=== PATIENT | male | born 1970 | race Caucasian/White ===

== ENCOUNTER 2017-10-13 10:12 | Inpatient (IN) | payer OTHER ==
[~2017-10-13] VITALS: Ht 182.9 cm; Wt 127.0 kg
[2017-10-13] VITALS (7 sets, daily range): BP systolic 113–208; BP diastolic 60–98; PULSE 80–122; RESP 16–18; TEMP 97.2–97.8; O2SAT 97–99
[~2017-10-13 10:12] MED LIST: AMBI5TAB PO; CLON.1 PO; VIST25CA PO; XANA0.5T PO; ZOLP10TA3 PO
[2017-10-13] MEDS ORDERED: MORPHINE SULFATE 8 MG/ML INJ ONE (10:16)
[2017-10-13] MEDS ORDERED: ceFAZolin 2 GM PREMIX 50 ML ONE (10:16)
[2017-10-13] MEDS ORDERED: DIPHTH/TETANUS/ACEL PERTUSSIS (BOOSTER) 0.5 ML VIAL/PFS IM ONE (10:16)
[2017-10-13] MEDS ORDERED: ONDANSETRON HCL 4 MG/2 ML VIAL ONE (10:17)
[2017-10-13] MEDS ORDERED: GENTAMICIN 80 MG PREMIX 100 ML ONE (10:22)
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
[2017-10-13 10:52] LABS: AUTOMATED NEUTROPHIL # 7.3 TH/MM3 (1.8-7.7); BASOPHIL % 0.3 % (0.0-2.0); EOSINOPHIL # 0.4 TH/MM3 (0-0.4); EOSINOPHIL % 3.2 % (0.0-4.0); HEMATOCRIT 40.7 % (39.0-51.0); HEMO FLAGS DIFF FINAL; I-STAT POTASSIUM 3.8 MMOL/L (3.5-4.9); LYMPH % 35.5 % (9.0-44.0); LYMPHOCYTE # 4.8 TH/MM3 (1.0-4.8); MEAN CELL VOLUME 83.6 FL (80.0-100.0); MEAN CORPUSCULAR HEMOGLOBIN 28.5 PG (27.0-34.0); MONO % 6.3 % (0.0-8.0); NEUT % 54.7 % (16.0-70.0); PLATELET COUNT 217 TH/MM3 (150-450); RED BLOOD COUNT 4.87 MIL/MM3 (4.50-5.90); RED CELL DISTRIBUTION WIDTH 13.6 % (11.6-17.2); WHITE BLOOD COUNT 13.4 TH/MM3 (4.0-11.0)
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
[2017-10-13] MEDS ORDERED: IOHEXOL 350 MG/ML 10 ML VIAL (for RAD DIAG) IVCONTRAST ONE (10:54)
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
[2017-10-13 11:02] LABS: APTT (PATIENT) 25.4 SEC (24.3-30.1); PROTHROMBIN TIME - PATIENT 10.7 SEC (9.8-11.6)
[2017-10-13] MEDS ORDERED: AMLO5TAB2 PO (11:02)
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
[2017-10-13] MEDS ORDERED: GABA100C4 PO (11:20)
[2017-10-13] MEDS ORDERED: ZOLP10TA3 PO (11:20)
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
[2017-10-13] MEDS: hydrALAZINE HCL 20 MG/ML VIAL IV PUSH ONE ×2 (11:41→11:45)
[2017-10-13] MEDS ORDERED: LORazepam 2 MG/ML VIAL IV PUSH ONE (11:45)
[2017-10-13] MEDS ORDERED: GLYCOPYRROLATE 1 MG/5 ML SYRINGE IV PUSH ONE (12:00)
[2017-10-13] MEDS ORDERED: PHENYLEPH/NS 1000 MCG/10 ML SYR IV ONE (12:00)
[2017-10-13] MEDS ORDERED: LACTATED RINGER'S 1000 ML INJ 5,000 ML IV ONE (12:00)
[2017-10-13] MEDS ORDERED: DEXAMETHASONE SOD PHOS 4 MG/ML VIAL IV ONE (12:00)
[2017-10-13] MEDS ORDERED: SODIUM CHLORIDE 0.9% 20 ML VIAL IV ONE (12:00)
[2017-10-13] MEDS ORDERED: LIDOCAINE HCL 1% PF 5 ML SYRINGE OTHER ONE (12:00)
[2017-10-13] MEDS ORDERED: ROCURONIUM INJ 50 MG/5 ML SYRINGE IV PUSH ONE (12:00)
[2017-10-13] MEDS ORDERED: MORPHINE SULFATE 4 MG/ML INJ IV ONE ×2 (12:00)
[2017-10-13] MEDS ORDERED: CHLORHEXIDINE GLUCONATE 2 % 1 PACK (2 CLOTHS) TOP PRN (12:00)
[2017-10-13] MEDS ORDERED: ONDANSETRON HCL 4 MG/2 ML VIAL IV PUSH ONE (12:00)
[2017-10-13] MEDS ORDERED: HYDROmorphone HCL PF 1 MG/ML VIAL IVP PRN (12:00)
[2017-10-13] MEDS ORDERED: MIDAZOLAM HCL 2 MG/2 ML VIAL IV ONE ×2 (12:00)
[2017-10-13] MEDS ORDERED: ACETAMINOPHEN 325 MG TAB PO PRN (12:00)
[2017-10-13] MEDS ORDERED: MISCELLANEOUS NURSING INFORMATION XX SCH (12:00)
[2017-10-13] MEDS ORDERED: NEOSTIGMINE 3 MG/3 ML SYR IV ONE (12:00)
[2017-10-13] MEDS ORDERED: SUCCINYLCHOLINE CHLORIDE 100 MG/5 ML SYRINGE IV PUSH ONE (12:00)
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
[2017-10-13] MEDS ORDERED: HYDROmorphone HCL PF 0.5 MG/0.5 ML SYRINGE IV PUSH PRN (12:30)
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
[2017-10-13] MEDS ORDERED: VANCOMYCIN HCL 1000 MG VIAL ONE (13:08)
[2017-10-13] MEDS ORDERED: GENTAMICIN SULFATE 80 MG/2 ML VIAL ONE (13:08)
[2017-10-13] MEDS: ACETAMINOPHEN 1000 MG/100 ML 100 ML IV SCH ×3 (13:22→22:55)
[2017-10-13] MEDS ORDERED: ACETAMINOPHEN 1000 MG/100 ML 0 ML IV ONE (13:36)
[2017-10-13] MEDS ORDERED: PROMETHAZINE HCL 25 MG TAB PO PRN (14:45)
[2017-10-13] MEDS ORDERED: MAGNESIUM HYDROXIDE SUSP 30 ML CUP PO PRN (14:45)
[2017-10-13] MEDS ORDERED: ZOLPIDEM TARTRATE 5 MG TAB PO PRN (14:45)
[2017-10-13] MEDS ORDERED: oxyCODONE/ACETAMINOPHEN 5 MG/325 MG TAB PO PRN ×2 (14:45)
[2017-10-13] MEDS ORDERED: SENNOSIDES 8.6 MG TAB PO PRN (14:45)
[2017-10-13] MEDS ORDERED: LACTULOSE SYRUP 20 GM/30 ML CUP PO PRN (14:45)
[2017-10-13] MEDS ORDERED: Post-op Orders (for Pharmacy) MISC XX ONE (14:45)
[2017-10-13] MEDS ORDERED: BISACODYL 10 MG SUPP RECTAL PRN (14:45)
[2017-10-13] MEDS ORDERED: ceFAZolin INJ 1,000 MG VIAL ONE ×2 (15:25→19:19)
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
[2017-10-13] MEDS ORDERED: ZOLPIDEM TARTRATE 10 MG TAB PO PRN (18:00)
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
[2017-10-13] MEDS ORDERED: GLUCAGON 1 MG/ML VIAL OTHER PRN (19:30)
[2017-10-13] MEDS ORDERED: DEXTROSE 50% IN WATER 50 ML VIAL(D50) IV PUSH PRN (19:30)
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
--- NOTE | 2017-10-13 20:14 | PD.OP ---
cc: Graeme Blackwood Jr., MD Operative Report Date of Surgery: Oct 13, 2017 Preoperative Diagnosis: 1-left distal radial shaft fracture 2- left segmental femur fracture Postoperative Diagnosis: Same Procedure: #1 left open reduction internal fixation, wrist #2 left femur intramedullary lucie fixation Anesthesia: Gen. Surgeon: Graeme Blackwood Cloth Grader Supervisor(s): Hospital staff Resident Surgeon: Sailaja Operation and Findings: Patient was seen and evaluated preoperatively and found to have a left distal radial shaft fracture as well as a left segmental femur shaft fracture. Informed consent was obtained after detailed discussion of risk and benefits including bleeding, infection, injury to arteries, nerves, and blood vessels, weakness and numbness of hand, and tendon rupture. Informed consent was obtained. Patient received IV antibiotics prior to incision. Timeout procedure was performed. Operative extremity were prepped with alcohol followed by Hibiclens and draped usual sterile fashion. Patient was placed supine on the fracture table with both left upper and left lower extremity prepped. A standard volar approach to the distal radius was utilized. A 3 inch incision was made over the FCR tendon. Tendon sheath was opened. The fracture site was now visualized. The fracture was reduced. Fracture fragments were manipulated to achieve excellent reduction. Fluoroscopy confirmed appropriate alignment of fracture. A Synthes 7-hole LCDC plate was selected. Plate was provisionally fixed to bone with K wires. Cortical screws were used to compress plate to bone. Fluoroscopy confirmed appropriate alignment of fracture with well-placed hardware. Multiple screws were now placed on either side of the fracture. Screws were predrilled and measured for appropriate length. Final fluoroscopy revealed excellent of fracture with well-placed hardware. The wound was thoroughly irrigated with sterile saline. Subcutaneous tissue was closed with 3-0 Vicryl and skin was closed with 3-0 nylon. Sterile dressings were applied with Xeroform, 4 x 4, soft roll, and a well padded volar splint. Implants used: 400mm x 10mm Synthes TFNA troch nail Procedure began with reduction of fracture. Small incisions were made at the level of the lesser trochanter and distal femur. Traction was applied. Both fractures were reduced with clamps. The leg was manipulated to achieve reduction. Excellent reduction was achieved. Fluoroscopy was used to confirm reduction. A three inch incision was made proximal to the trochanter. Subcutaneous tissue was dissected bluntly. Guidepin was placed at the tip of the trochanter and advanced into the femoral canal. Fluoroscopy confirmed appropriate guidepin placement. A opening reamer was placed over the guidepin. A long ball tipped guide pin was now placed down the femoral canal into the center of the distal femur. The nail length was now measured. Fluoroscopy confirmed appropriate guidepin placement. Flexible reamers were now passed over the guidepin to ream the intramedullary canal. The Synthes TFNA nail was attached to the insertion handle. Nail was now placed over the guidepin into the femoral canal. Fluoroscopy confirmed appropriate nail placement. A second incision was made over the lateral thigh. Cannulas were placed through the insertion handle down to the femur. Guidepin was now placed through the femoral nail into the center of the femoral head. Fluoroscopy confirmed appropriate guidepin placement. Screw length was measured. Cannulated drill was placed over the guidepin. Appropriate length lag screw was now placed. Traction was released. The set screw was now tightened. Next, using perfect coeur d'alene technique two distal interlocking screws were placed. Screw holes were predrilled and screw lengths were measured. Final fluoroscopy revealed well aligned fracture with well-placed hardware. Incision was closed with 3-0 Vicryl and kym. Sterile dressings were applied. Patient was awakened and transferred to recovery room. POSTP-OP PLAN OF ACTIVITY Antibiotics: Ancef Antiocoagulation: Lovenox Weight bearing status: NWB LUE LLE Dressing: Change daily POD 2 Dispo: expected discharge when cleared by trauma team Graeme Blackwood Jr., MD Oct 13, 2017 20:14
[2017-10-13] MEDS: INSULIN NovoLIN REGULAR SUPPLEMENTAL SCALE SQ SCH (21:00)
[2017-10-13] MEDS ORDERED: DO NOT ADM ANY ANTICOAGULANT DRUGS PRN (21:00)
[2017-10-13] MEDS ORDERED: DOCUSATE SODIUM 100 MG CAP PO SCH (21:00)
[2017-10-13] MEDS ORDERED: *MEPERIDINE 25 MG INJ VIAL PERIprocedural Use ONLY ONE (21:27)
[2017-10-13] MEDS ORDERED: *morphine SULFATE 8 MG/ML PERIprocedure ONLY ONE ×2 (21:27→21:52)
[2017-10-13] MEDS: LACTATED RINGER'S 1000 ML INJ 1,000 ML IV SCH ×2 (21:45→22:00)
[2017-10-13] MEDS: CHLORHEXIDINE GLUCONATE 2 % 1 PACK (2 CLOTHS) TOP SCH (22:25)
[2017-10-13] MEDS: GABAPENTIN 100 MG CAP PO SCH (22:25)
[2017-10-13] MEDS: DOCUSATE SODIUM 50 MG/SENNA 8.6 MG TAB PO SCH (22:25)
[2017-10-13] MEDS: SODIUM CHLORIDE 0.9% FLUSH 10 ML FLUSH IV FLUSH SCH (22:25)
[2017-10-14] VITALS (9 sets, daily range): BP systolic 104–139; BP diastolic 55–84; PULSE 95–112; RESP 18–20; TEMP 96.6–99; O2SAT 92–97
[2017-10-14] MEDS: MORPHINE SULFATE 8 MG/ML INJ IV PUSH PRN ×4 (00:49→10:26)
[2017-10-14] MEDS ORDERED: ENOXAPARIN SODIUM 30 MG/0.3 ML SYRINGE SQ SCH (04:00)
[2017-10-14] MEDS: ACETAMINOPHEN 1000 MG/100 ML 100 ML IV SCH (06:15)
[2017-10-14 06:53] LABS: AUTOMATED NEUTROPHIL # 11.4 TH/MM3 (1.8-7.7); HEMATOCRIT 28.6 % (39.0-51.0); HEMO FLAGS DIFF FINAL; LYMPH % 9.9 % (9.0-44.0); LYMPHOCYTE # 1.4 TH/MM3 (1.0-4.8); MEAN CELL VOLUME 84.3 FL (80.0-100.0); MEAN CORPUSCULAR HEMOGLOBIN 28.3 PG (27.0-34.0); MEAN CORPUSCULAR HGB CONC 33.5 % (32.0-36.0); MONO % 8.2 % (0.0-8.0); NEUT % 81.9 % (16.0-70.0); PLATELET COUNT 199 TH/MM3 (150-450); RED BLOOD COUNT 3.39 MIL/MM3 (4.50-5.90); RED CELL DISTRIBUTION WIDTH 13.4 % (11.6-17.2); WHITE BLOOD COUNT 13.9 TH/MM3 (4.0-11.0)
[2017-10-14 07:18] LABS: ALT (GPT) 91 U/L (12-78)
[2017-10-14 07:20] LABS: ALKALINE PHOSPHATASE 66 U/L (45-117); TOTAL BILIRUBIN ADULT 0.4 MG/DL (0.2-1.0)
[2017-10-14 07:44] LABS: ANION GAP 6 MEQ/L (5-15); AST (GOT) 261 U/L (15-37); BICARBONATE 26.2 MEQ/L (21.0-32.0); CHLORIDE 105 MEQ/L (98-107); GLOMERULAR FILTRATION RATE 54 ML/MIN (>89); POTASSIUM 4.6 MEQ/L (3.5-5.1); SODIUM (NA) 137 MEQ/L (136-145)
[2017-10-14] MEDS: DOCUSATE SODIUM 50 MG/SENNA 8.6 MG TAB PO SCH ×2 (07:50→21:36)
[2017-10-14] MEDS: GABAPENTIN 100 MG CAP PO SCH ×3 (07:50→17:20)
[2017-10-14] MEDS: amLODIPine BESYLATE 5 MG TAB PO SCH (07:50)
[2017-10-14] MEDS: SODIUM CHLORIDE 0.9% FLUSH 10 ML FLUSH IV FLUSH SCH ×2 (07:51→21:38)
[2017-10-14] MEDS: INSULIN NovoLIN REGULAR SUPPLEMENTAL SCALE SQ SCH (07:52)
[2017-10-14] MEDS: LACTATED RINGER'S 1000 ML INJ 1,000 ML IV SCH (08:00)
[2017-10-14 08:01] LABS: BLOOD UREA NITROGEN 20 MG/DL (7-18)
[2017-10-14] MEDS ORDERED: INFLUENZA VIRUS VACCINE (QUADRIVALENT) 0.5 ML SYR IM ONE (09:00)
[2017-10-14] MEDS ORDERED: HYDROmorphone HCL PF 1 MG/ML VIAL IV PUSH PRN (11:15)
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
--- NOTE | 2017-10-14 12:52 | PD.ORT.PN ---
Subjective Subjective Remarks doing well. pain issues. h/o opiate abuse Objective Vitals Vital Signs Date Time Temp Pulse Resp B/P (MAP) Pulse Ox O2 Delivery O2 Flow Rate FiO2 10/14/17 12:00 97.4 95 18 126/69 (88) 93 10/14/17 09:24 93 21 10/14/17 08:00 96.6 100 18 104/61 (75) 92 10/14/17 04:23 96 Nasal Cannula 2.00 10/14/17 04:14 96.7 112 18 139/55 (83) 96 10/14/17 00:27 98.5 106 20 120/70 (87) 95 10/13/17 22:43 97.2 116 18 113/60 (77) 99 10/13/17 22:02 123 14 101/59 (73) 98 Nasal Cannula 2 10/13/17 21:45 121 11 130/63 (85) 97 Nasal Cannula 2 10/13/17 21:30 98.2 129 15 132/51 (78) 97 Nasal Cannula 2 10/13/17 21:16 126 25 133/67 (89) 100 Nasal Cannula 2 10/13/17 21:14 98.2 124 15 155/70 (98) 100 Nasal Cannula 3 I/O 10/13/17 10/13/17 10/13/17 10/14/17 10/14/17 10/14/17 07:00 15:00 23:00 07:00 15:00 23:00 Intake Total 3900 ml 200 ml Output Total 1200 ml 450 ml 650 ml Balance -1200 ml 3450 ml -450 ml Intake IV Total 800 ml 200 ml Other 3100 ml Output Urine Total 1200 ml 150 ml 650 ml Estimated Blood Loss 300 ml Result Diagram: 10/14/1745 10/14/1745 Objective Remarks Alert awake and oriented -3. No acute distress. Pulmonary: Normal respiratory effort. Left upper extremity: Splint in place. Able to wiggle fingers. Grossly neuro intact. good cap refill. Left lower Extremity: Neurovascularly intact, +EHL/FHL, dressing clean, dry and intact. + PT/DP pulses. Supple compartments. Negative Homans sign. Assessment & Plan Assessment and Plan #1 left wrist open reduction internal fixation #2 left femoral shaft intramedullary lucie fixation POD # 1 Doing well, history of opiate abuse. Antibiotics: Ancef DVT prophylaxis, Lovenox, ASA 81mg at dc Weightbearing status: NWB DOROTHY QUEVEDO Dressing change: Change daily, by RN starting postop day 2 Dispo: Stable and okay to discharge from orthopedic standpoint. Follow-up: 2 weeks, Dr. Blackwood, [facility] Thank you for the consult and allowing us to take part in this patient's medical care. Graeme Blackwood Jr., MD Oct 14, 2017 12:52
[2017-10-14] MEDS: BACITRACIN TOP OINT 15 GM TUBE TOP SCH ×2 (13:07→21:36)
[2017-10-14] MEDS: POLYETHYLENE GLYCOL 17 GM PKG PO SCH (13:07)
[2017-10-14] MEDS: METHOCARBAMOL 500 MG TAB PO SCH ×2 (13:08→21:36)
[2017-10-14] MEDS: ENOXAPARIN SODIUM 30 MG/0.3 ML SYRINGE SQ SCH ×2 (13:08→23:48)
[2017-10-14] MEDS: HYDROmorphone HCL PF 1 MG/ML VIAL IV PUSH PRN ×4 (13:10→22:38)
[2017-10-14] MEDS ORDERED: WHEEMIS3 (16:37)
[2017-10-14] MEDS ORDERED: WALKER WHEELS/F1 MIS (16:37)
[2017-10-14] MEDS ORDERED: COMMODE BEDSIDE1 MI1 (16:37)
[2017-10-15 00:50] VITALS: BP 130/72; PULSE 98; RESP 20; TEMP 98.5; O2SAT 95
[2017-10-15] MEDS: HYDROmorphone HCL PF 1 MG/ML VIAL IV PUSH PRN ×7 (03:06→23:33)
[2017-10-15] MEDS: LACTATED RINGER'S 1000 ML INJ 1,000 ML IV SCH ×2 (04:00→14:00)
[2017-10-15] MEDS: CHLORHEXIDINE GLUCONATE 2 % 1 PACK (2 CLOTHS) TOP SCH ×2 (04:00→23:34)
[2017-10-15 05:28] LABS: BASOPHIL % 0.3 % (0.0-2.0); EOSINOPHIL # 0.1 TH/MM3 (0-0.4); EOSINOPHIL % 0.9 % (0.0-4.0); HEMATOCRIT 24.7 % (39.0-51.0); HEMO FLAGS DIFF FINAL; LYMPH % 20.5 % (9.0-44.0); LYMPHOCYTE # 2.2 TH/MM3 (1.0-4.8); MEAN CELL VOLUME 84.7 FL (80.0-100.0); MEAN CORPUSCULAR HEMOGLOBIN 29.7 PG (27.0-34.0); MONO % 11.8 % (0.0-8.0); NEUT % 66.5 % (16.0-70.0); PLATELET COUNT 144 TH/MM3 (150-450); RED BLOOD COUNT 2.92 MIL/MM3 (4.50-5.90); RED CELL DISTRIBUTION WIDTH 13.6 % (11.6-17.2); WHITE BLOOD COUNT 10.6 TH/MM3 (4.0-11.0)
[2017-10-15 05:55] LABS: ALT (GPT) 86 U/L (12-78); ANION GAP 7 MEQ/L (5-15); AST (GOT) 212 U/L (15-37); BICARBONATE 25.5 MEQ/L (21.0-32.0); BLOOD UREA NITROGEN 13 MG/DL (7-18); CHLORIDE 107 MEQ/L (98-107); GLOMERULAR FILTRATION RATE 101 ML/MIN (>89); SODIUM (NA) 139 MEQ/L (136-145)
[2017-10-15 05:59] LABS: ALKALINE PHOSPHATASE 63 U/L (45-117); TOTAL BILIRUBIN ADULT 0.5 MG/DL (0.2-1.0)
[2017-10-15] MEDS: METHOCARBAMOL 500 MG TAB PO SCH ×3 (06:11→23:32)
--- NOTE | 2017-10-15 07:24 | PD.ORT.PN ---
Subjective Subjective Remarks Patient doing well this morning. Reports some moderate pain in his left wrist and thigh after just having had his dressings changed. Denies any numbness or tingling. Denies chest pain or shortness of breath. Objective Vitals Vital Signs Date Time Temp Pulse Resp B/P (MAP) Pulse Ox O2 Delivery O2 Flow Rate FiO2 10/15/17 00:50 98.5 98 20 130/72 (91) 95 10/14/17 20:01 99.0 107 20 132/84 (100) 97 10/14/17 18:07 93 21 10/14/17 16:00 97.0 95 18 118/56 (76) 93 10/14/17 12:00 97.4 95 18 126/69 (88) 93 10/14/17 09:24 93 21 10/14/17 08:00 96.6 100 18 104/61 (75) 92 I/O 10/14/17 10/14/17 10/14/17 10/15/17 10/15/17 10/15/17 07:00 15:00 23:00 07:00 15:00 23:00 Intake Total 200 ml 720 ml 1818 ml Output Total 650 ml 1600 ml 1000 ml 1450 ml Balance -450 ml -880 ml 818 ml -1450 ml Intake Oral 720 ml IV Total 200 ml 1818 ml Output Urine Total 650 ml 1600 ml 1000 ml 1450 ml # Bowel Movements 0 Result Diagram: 10/15/17 0456 10/15/17 0456 Objective Remarks Alert awake and oriented -3. No acute distress. Pulmonary: Normal respiratory effort. Left upper extremity: Splint in place. Able to wiggle fingers. Grossly neuro intact. good cap refill. Left lower Extremity: Neurovascularly intact, +EHL/FHL, dressing clean, dry and intact. + PT/DP pulses. Supple compartments. Negative Homans sign. Assessment & Plan Assessment and Plan #1 left wrist open reduction internal fixation #2 left femoral shaft intramedullary lucie fixation POD # 2 Doing well, history of opiate abuse. Antibiotics: Ancef DVT prophylaxis, Lovenox, ASA 81mg at dc Weightbearing status: NWB DOROTHY QUEVEDO Dressing change: Change daily, by RN starting postop day 2 Dispo: Stable and okay to discharge from orthopedic standpoint. Follow-up: 2 weeks, Dr. Blackwood, [facility] Thank you for the consult and allowing us to take part in this patient's medical care. Carly Dubon MD Oct 15, 2017 07:24
[2017-10-15 07:26] VITALS: BP 116/54; PULSE 100; RESP 18; TEMP 97.4; O2SAT 97
[2017-10-15] MEDS: POLYETHYLENE GLYCOL 17 GM PKG PO SCH (08:01)
[2017-10-15] MEDS: GABAPENTIN 100 MG CAP PO SCH ×3 (08:02→16:56)
[2017-10-15] MEDS: DOCUSATE SODIUM 50 MG/SENNA 8.6 MG TAB PO SCH ×2 (08:02→20:19)
[2017-10-15] MEDS: amLODIPine BESYLATE 5 MG TAB PO SCH (09:00)
[2017-10-15] MEDS: SODIUM CHLORIDE 0.9% FLUSH 10 ML FLUSH IV FLUSH SCH ×2 (09:00→20:19)
[2017-10-15] MEDS: BACITRACIN TOP OINT 15 GM TUBE TOP SCH ×2 (09:00→21:00)
[2017-10-15 12:00] VITALS: BP 118/80; PULSE 93; RESP 18; TEMP 97.2; O2SAT 96
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
[2017-10-15] MEDS: ENOXAPARIN SODIUM 30 MG/0.3 ML SYRINGE SQ SCH ×2 (12:58→23:34)
[2017-10-15] MEDS: ONDANSETRON HCL 4 MG/2 ML VIAL IV PUSH PRN (13:30)
[2017-10-15 16:00] VITALS: BP 135/85; PULSE 90; RESP 18; TEMP 97.8; O2SAT 94
[2017-10-15 19:00] VITALS: BP 120/64; PULSE 89; RESP 18; TEMP 97.7; O2SAT 94
[2017-10-15] MEDS: LORazepam 1 MG TAB PO PRN (20:19)
[2017-10-15 23:19] VITALS: BP 118/57; PULSE 102; RESP 18; TEMP 98.1; O2SAT 96
[2017-10-16] MEDS: HYDROmorphone HCL PF 1 MG/ML VIAL IV PUSH PRN ×6 (03:38→23:16)
[2017-10-16] MEDS: METHOCARBAMOL 500 MG TAB PO SCH ×3 (05:47→21:06)
[2017-10-16 06:25] LABS: HEMATOCRIT 25.3 % (39.0-51.0); REVIEW FLAG FINAL
[2017-10-16] MEDS ORDERED: ACETAMINOPHEN/HYDROcodone 325 MG/5 MG TAB PO PRN (07:45)
[2017-10-16 08:00] VITALS: BP 127/57; PULSE 105; RESP 18; TEMP 96.5; O2SAT 97
[2017-10-16] MEDS ORDERED: MAGNESIUM CITRATE SOLN 300 ML BTL PO ONE (08:00)
[2017-10-16] MEDS: POLYETHYLENE GLYCOL 17 GM PKG PO SCH (08:43)
[2017-10-16] MEDS: GABAPENTIN 300 MG CAP PO SCH ×3 (08:43→18:54)
[2017-10-16] MEDS: amLODIPine BESYLATE 5 MG TAB PO SCH (08:44)
[2017-10-16] MEDS: DOCUSATE SODIUM 50 MG/SENNA 8.6 MG TAB PO SCH ×2 (08:44→19:36)
[2017-10-16] MEDS: fentaNYL 50 MCG/HR PATCH T-DERMAL SCH (08:45)
[2017-10-16] MEDS: SODIUM CHLORIDE 0.9% FLUSH 10 ML FLUSH IV FLUSH SCH ×2 (08:49→19:37)
[2017-10-16] MEDS: BACITRACIN TOP OINT 15 GM TUBE TOP SCH ×2 (08:55→19:37)
[2017-10-16] MEDS: LORazepam 1 MG TAB PO PRN ×2 (11:14→20:13)
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
[2017-10-16 12:00] VITALS: BP 110/53; PULSE 109; RESP 18; TEMP 97.8; O2SAT 98
[2017-10-16] MEDS: ENOXAPARIN SODIUM 30 MG/0.3 ML SYRINGE SQ SCH ×2 (12:00→23:16)
[2017-10-16] MEDS: SODIUM CHLORIDE 0.9% FLUSH 10 ML FLUSH IV FLUSH PRN (15:28)
[2017-10-16 16:00] VITALS: BP 123/61; PULSE 109; RESP 18; TEMP 98.3; O2SAT 96
[2017-10-16 19:36] VITALS: BP 124/61; PULSE 114; RESP 17; TEMP 97.9; O2SAT 97
[2017-10-16] MEDS: ACETAMINOPHEN/HYDROcodone 325 MG/10 MG TAB PO PRN (21:06)
[2017-10-16] MEDS ORDERED: PERI PO (21:38)
[2017-10-16] MEDS ORDERED: MAGN30S PO (21:38)
[2017-10-16 23:23] VITALS: BP 139/69; PULSE 111; RESP 18; TEMP 98; O2SAT 98
[2017-10-17] MEDS: ACETAMINOPHEN/HYDROcodone 325 MG/10 MG TAB PO PRN ×5 (03:04→21:18)
[2017-10-17] MEDS: METHOCARBAMOL 500 MG TAB PO SCH ×3 (04:34→21:17)
[2017-10-17] MEDS: HYDROmorphone HCL PF 1 MG/ML VIAL IV PUSH PRN ×6 (04:35→22:08)
[2017-10-17] MEDS ORDERED: BISACODYL EC 5 MG TABEC PO ONE (07:30)
[2017-10-17] MEDS ORDERED: BISACODYL 10 MG SUPP RECTAL ONE (07:30)
[2017-10-17 08:00] VITALS: BP 148/76; PULSE 101; RESP 16; TEMP 96.2; O2SAT 98
[2017-10-17] MEDS: amLODIPine BESYLATE 5 MG TAB PO SCH (08:41)
[2017-10-17] MEDS: LORazepam 1 MG TAB PO PRN ×2 (08:41→17:20)
[2017-10-17] MEDS: GABAPENTIN 300 MG CAP PO SCH ×3 (08:41→17:15)
[2017-10-17] MEDS: DOCUSATE SODIUM 50 MG/SENNA 8.6 MG TAB PO SCH ×2 (08:41→20:12)
[2017-10-17] MEDS: POLYETHYLENE GLYCOL 17 GM PKG PO SCH (08:41)
[2017-10-17] MEDS: LACTULOSE SYRUP 20 GM/30 ML CUP PO SCH (08:42)
[2017-10-17] MEDS: MAGNESIUM HYDROXIDE SUSP 30 ML CUP PO SCH ×2 (08:42→20:12)
[2017-10-17] MEDS: SODIUM CHLORIDE 0.9% FLUSH 10 ML FLUSH IV FLUSH SCH ×2 (08:49→20:12)
[2017-10-17] MEDS: BACITRACIN TOP OINT 15 GM TUBE TOP SCH ×2 (09:00→20:12)
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
[2017-10-17 12:00] VITALS: BP 131/72; PULSE 106; RESP 16; TEMP 98; O2SAT 97
[2017-10-17] MEDS: ENOXAPARIN SODIUM 30 MG/0.3 ML SYRINGE SQ SCH (12:42)
[2017-10-17 15:45] VITALS: BP 125/75; PULSE 108; RESP 16; TEMP 98.8; O2SAT 98
[2017-10-17 19:45] VITALS: BP 109/64; PULSE 119; RESP 16; TEMP 99.6; O2SAT 97
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
[2017-10-18 00:59] VITALS: BP 102/60; PULSE 98; RESP 18; TEMP 97.2; O2SAT 94
[2017-10-18] MEDS: LORazepam 1 MG TAB PO PRN ×4 (01:24→20:25)
[2017-10-18] MEDS: ACETAMINOPHEN/HYDROcodone 325 MG/10 MG TAB PO PRN ×5 (01:25→20:25)
[2017-10-18] MEDS: ENOXAPARIN SODIUM 30 MG/0.3 ML SYRINGE SQ SCH ×2 (01:26→11:57)
[2017-10-18] MEDS: METHOCARBAMOL 500 MG TAB PO SCH ×3 (05:39→20:25)
[2017-10-18 06:36] LABS: BASOPHIL % 0.4 % (0.0-2.0); EOSINOPHIL # 0.3 TH/MM3 (0-0.4); EOSINOPHIL % 3.3 % (0.0-4.0); HEMATOCRIT 27.7 % (39.0-51.0); HEMO FLAGS DIFF FINAL; LYMPHOCYTE # 2.7 TH/MM3 (1.0-4.8); MEAN CELL VOLUME 85.4 FL (80.0-100.0); MEAN CORPUSCULAR HEMOGLOBIN 28.5 PG (27.0-34.0); MEAN CORPUSCULAR HGB CONC 33.4 % (32.0-36.0); MONO % 9.2 % (0.0-8.0); NEUT % 60.1 % (16.0-70.0); PLATELET COUNT 264 TH/MM3 (150-450); RED BLOOD COUNT 3.24 MIL/MM3 (4.50-5.90); RED CELL DISTRIBUTION WIDTH 13.8 % (11.6-17.2)
[2017-10-18 07:01] LABS: BICARBONATE 29.4 MEQ/L (21.0-32.0); POTASSIUM 3.8 MEQ/L (3.5-5.1)
[2017-10-18] MEDS ORDERED: BISACODYL EC 5 MG TABEC PO ONE (07:15)
[2017-10-18] MEDS ORDERED: BISACODYL 10 MG SUPP RECTAL ONE (07:15)
[2017-10-18 08:00] VITALS: BP 123/65; PULSE 101; RESP 18; TEMP 96.9; O2SAT 97
[2017-10-18] MEDS: HYDROmorphone HCL PF 1 MG/ML VIAL IV PUSH PRN ×4 (08:39→21:55)
[2017-10-18] MEDS: amLODIPine BESYLATE 5 MG TAB PO SCH (08:40)
[2017-10-18] MEDS: LACTULOSE SYRUP 20 GM/30 ML CUP PO SCH (08:40)
[2017-10-18] MEDS: POLYETHYLENE GLYCOL 17 GM PKG PO SCH (08:40)
[2017-10-18] MEDS: DOCUSATE SODIUM 50 MG/SENNA 8.6 MG TAB PO SCH ×2 (08:40→20:25)
[2017-10-18] MEDS: GABAPENTIN 300 MG CAP PO SCH ×3 (08:40→17:25)
[2017-10-18] MEDS: SODIUM CHLORIDE 0.9% FLUSH 10 ML FLUSH IV FLUSH SCH ×2 (08:41→20:26)
[2017-10-18] MEDS: BACITRACIN TOP OINT 15 GM TUBE TOP SCH ×2 (08:49→20:26)
[2017-10-18 12:00] VITALS: BP 119/71; PULSE 110; RESP 19; TEMP 98.3; O2SAT 97
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
[2017-10-18 15:27] VITALS: BP 148/68; PULSE 127; RESP 17; TEMP 97.7; O2SAT 98
[2017-10-18] MEDS: MAGNESIUM HYDROXIDE SUSP 30 ML CUP PO SCH ×2 (15:41→20:25)
[2017-10-18 20:00] VITALS: BP 124/57; PULSE 112; RESP 18; TEMP 97.6; O2SAT 96
[2017-10-19] VITALS: BP 107/57; PULSE 108; RESP 20; TEMP 96.3; O2SAT 95
[2017-10-19] MEDS: ACETAMINOPHEN/HYDROcodone 325 MG/10 MG TAB PO PRN ×5 (00:44→20:41)
[2017-10-19] MEDS: ENOXAPARIN SODIUM 30 MG/0.3 ML SYRINGE SQ SCH ×2 (00:44→11:31)
[2017-10-19] MEDS: HYDROmorphone HCL PF 1 MG/ML VIAL IV PUSH PRN ×5 (02:35→21:58)
[2017-10-19] MEDS: METHOCARBAMOL 500 MG TAB PO SCH ×3 (05:57→20:41)
[2017-10-19] MEDS: LORazepam 1 MG TAB PO PRN ×2 (05:57→20:41)
[2017-10-19] MEDS ORDERED: Lactulose Liq PO (07:46)
[2017-10-19] MEDS ORDERED: HYDROMORPHONE IV PUSH (07:46)
[2017-10-19 08:00] VITALS: BP 133/69; PULSE 104; RESP 18; TEMP 97.8; O2SAT 96
[2017-10-19] MEDS: POLYETHYLENE GLYCOL 17 GM PKG PO SCH (08:26)
[2017-10-19] MEDS: DOCUSATE SODIUM 50 MG/SENNA 8.6 MG TAB PO SCH ×2 (08:26→19:23)
[2017-10-19] MEDS: amLODIPine BESYLATE 5 MG TAB PO SCH (08:26)
[2017-10-19] MEDS: MAGNESIUM HYDROXIDE SUSP 30 ML CUP PO SCH ×2 (08:26→19:23)
[2017-10-19] MEDS: GABAPENTIN 300 MG CAP PO SCH ×3 (08:26→16:28)
[2017-10-19] MEDS: LACTULOSE SYRUP 20 GM/30 ML CUP PO SCH (08:26)
[2017-10-19] MEDS: REMOVE OLD DURAGESIC (FENTANYL) PATCH T-DERMAL SCH (08:32)
[2017-10-19] MEDS: BACITRACIN TOP OINT 15 GM TUBE TOP SCH ×2 (08:32→19:24)
[2017-10-19] MEDS: fentaNYL 50 MCG/HR PATCH T-DERMAL SCH (08:32)
[2017-10-19] MEDS: SODIUM CHLORIDE 0.9% FLUSH 10 ML FLUSH IV FLUSH SCH ×2 (08:33→19:24)
[2017-10-19 12:00] VITALS: BP 113/67; PULSE 120; RESP 18; TEMP 98.9; O2SAT 97
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
[2017-10-19] MEDS ORDERED: MAGNESIUM CITRATE SOLN 300 ML BTL PO ONE (14:30)
[2017-10-19 16:00] VITALS: BP 120/62; PULSE 117; RESP 18; TEMP 98.1; O2SAT 98
--- NOTE | 2017-10-19 17:14 | MB ---
cc: LAMIN SHARMA MD DATE OF CONSULTATION 10/19/17 NOTE I just happened to review the patient's status since I saw that he was still in hospital and it states that I refused to speak with the transferring doctor. I do not know why that was stated because that is simply not true. I did state I was willing to speak with the physician and I am still willing to speak with the physician if they so desire, so again the physician who he is to be transferred to can certainly call me if desired regarding transfer. Thank you. Again, I not know what that misunderstanding was stated in the note that way because that was simply not true. Lamin Sharma MD CCP/ /5:01 PM /5:07 PM MTDD
[2017-10-19 19:55] VITALS: BP 127/72; PULSE 115; RESP 18; TEMP 99.3; O2SAT 97
[2017-10-20] VITALS: BP 114/60; PULSE 104; RESP 18; TEMP 96.6; O2SAT 96
[2017-10-20] MEDS: ACETAMINOPHEN/HYDROcodone 325 MG/10 MG TAB PO PRN ×6 (00:46→22:32)
[2017-10-20] MEDS: ENOXAPARIN SODIUM 30 MG/0.3 ML SYRINGE SQ SCH ×3 (00:46→22:32)
[2017-10-20] MEDS: METHOCARBAMOL 500 MG TAB PO SCH ×3 (04:53→21:25)
[2017-10-20] MEDS: LORazepam 1 MG TAB PO PRN ×3 (04:53→21:25)
[2017-10-20] MEDS: HYDROmorphone HCL PF 1 MG/ML VIAL IV PUSH PRN ×4 (06:13→20:22)
[2017-10-20 08:00] VITALS: BP 126/71; PULSE 98; RESP 19; TEMP 96.7; O2SAT 91
[2017-10-20] MEDS: BACITRACIN TOP OINT 15 GM TUBE TOP SCH ×2 (09:00→21:00)
[2017-10-20] MEDS: POLYETHYLENE GLYCOL 17 GM PKG PO SCH (09:08)
[2017-10-20] MEDS: amLODIPine BESYLATE 5 MG TAB PO SCH (09:09)
[2017-10-20] MEDS: GABAPENTIN 300 MG CAP PO SCH ×3 (09:10→17:44)
[2017-10-20] MEDS: MAGNESIUM HYDROXIDE SUSP 30 ML CUP PO SCH ×2 (09:10→21:00)
[2017-10-20] MEDS: SODIUM CHLORIDE 0.9% FLUSH 10 ML FLUSH IV FLUSH SCH ×2 (09:10→21:27)
[2017-10-20] MEDS: DOCUSATE SODIUM 50 MG/SENNA 8.6 MG TAB PO SCH ×2 (09:10→21:00)
[2017-10-20] MEDS: LACTULOSE SYRUP 20 GM/30 ML CUP PO SCH (09:10)
[2017-10-20 12:00] VITALS: BP 134/82; PULSE 99; RESP 20; TEMP 97.1; O2SAT 100
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
[2017-10-20 16:00] VITALS: BP 129/70; PULSE 110; RESP 19; TEMP 96.7; O2SAT 100
[2017-10-20] MEDS: ONDANSETRON HCL 4 MG/2 ML VIAL IV PUSH PRN (17:44)
[2017-10-20] MEDS: SODIUM CHLORIDE 0.9% FLUSH 10 ML FLUSH IV FLUSH PRN (17:45)
--- NOTE | 2017-10-20 17:58 | PD.ORT.PN ---
Subjective Subjective Remarks Nurse report increased drainage of left upper thigh wound. He is afebrile. Doing well. pain issues. h/o opiate abuse Objective Vitals Vital Signs Date Time Temp Pulse Resp B/P (MAP) Pulse Ox O2 Delivery O2 Flow Rate FiO2 10/20/17 12:00 97.1 99 20 134/82 (99) 100 10/20/17 08:00 96.7 98 19 126/71 (89) 91 10/20/17 00:00 96.6 104 18 114/60 (78) 96 10/19/17 19:55 99.3 115 18 127/72 (90) 97 I/O 10/19/17 10/19/17 10/19/17 10/20/17 10/20/17 10/20/17 07:00 15:00 23:00 07:00 15:00 23:00 Intake Total 120 ml 480 ml 480 ml 240 ml 200 ml Balance 120 ml 480 ml 480 ml 240 ml 200 ml Intake Oral 120 ml 480 ml 480 ml 240 ml 200 ml # Voids 0 5 1 1 2 # Bowel Movements 0 0 0 1 4 Result Diagram: 10/18/1755 10/18/17 0555 Objective Remarks Alert awake and oriented -3. No acute distress. Pulmonary: Normal respiratory effort. Left upper extremity: Splint in place. Able to wiggle fingers. Grossly neuro intact. good cap refill. Left lower Extremity: Neurovascularly intact, +EHL/FHL, dressing increased ss drainage, no sign of infection + PT/DP pulses. Supple compartments. Negative Homans sign. Assessment & Plan Assessment and Plan #1 left wrist open reduction internal fixation #2 left femoral shaft intramedullary lucie fixation POD # 7 Doing well, history of opiate abuse. DVT prophylaxis, Lovenox, ASA 81mg at dc Weightbearing status: NWB LLE LUE Dressing change: Change daily Dispo: Stable and okay to discharge from orthopedic standpoint. Follow-up: 2 weeks, Dr. Blackwood, [facility] SIGN off Graeme Blackwood Jr., MD Oct 20, 2017 17:58
[2017-10-20 19:00] VITALS: BP 105/64; PULSE 110; RESP 17; TEMP 98.2; O2SAT 98
[2017-10-21] VITALS: BP 134/63; PULSE 117; RESP 15; TEMP 98.3; O2SAT 97
[2017-10-21] MEDS: HYDROmorphone HCL PF 1 MG/ML VIAL IV PUSH PRN ×4 (04:01→21:22)
[2017-10-21 05:21] LABS: AUTOMATED NEUTROPHIL # 8.6 TH/MM3 (1.8-7.7); BASOPHIL % 0.2 % (0.0-2.0); EOSINOPHIL # 0.2 TH/MM3 (0-0.4); EOSINOPHIL % 1.8 % (0.0-4.0); HEMATOCRIT 25.9 % (39.0-51.0); HEMO FLAGS DIFF FINAL; LYMPH % 22.6 % (9.0-44.0); MEAN CELL VOLUME 86.6 FL (80.0-100.0); MEAN CORPUSCULAR HEMOGLOBIN 29.4 PG (27.0-34.0); MEAN CORPUSCULAR HGB CONC 33.9 % (32.0-36.0); MONO % 9.3 % (0.0-8.0); NEUT % 66.1 % (16.0-70.0); PLATELET COUNT 344 TH/MM3 (150-450); RED CELL DISTRIBUTION WIDTH 14.5 % (11.6-17.2); WHITE BLOOD COUNT 13.1 TH/MM3 (4.0-11.0)
[2017-10-21 05:28] LABS: BICARBONATE 27.1 MEQ/L (21.0-32.0); POTASSIUM 3.6 MEQ/L (3.5-5.1)
[2017-10-21] MEDS: METHOCARBAMOL 500 MG TAB PO SCH ×3 (06:00→21:14)
[2017-10-21 08:00] VITALS: BP 108/54; PULSE 100; RESP 18; TEMP 97.2; O2SAT 96
[2017-10-21] MEDS: amLODIPine BESYLATE 5 MG TAB PO SCH (08:14)
[2017-10-21] MEDS: DOCUSATE SODIUM 50 MG/SENNA 8.6 MG TAB PO SCH ×2 (08:14→21:14)
[2017-10-21] MEDS: ACETAMINOPHEN/HYDROcodone 325 MG/10 MG TAB PO PRN ×4 (08:14→22:49)
[2017-10-21] MEDS: LORazepam 1 MG TAB PO PRN ×2 (08:14→16:51)
[2017-10-21] MEDS: GABAPENTIN 300 MG CAP PO SCH ×3 (08:14→16:49)
[2017-10-21] MEDS: MAGNESIUM HYDROXIDE SUSP 30 ML CUP PO SCH ×2 (08:14→21:00)
[2017-10-21] MEDS: LACTULOSE SYRUP 20 GM/30 ML CUP PO SCH (08:14)
[2017-10-21] MEDS: BACITRACIN TOP OINT 15 GM TUBE TOP SCH ×2 (08:15→21:15)
[2017-10-21] MEDS: POLYETHYLENE GLYCOL 17 GM PKG PO SCH (08:15)
[2017-10-21] MEDS: SODIUM CHLORIDE 0.9% FLUSH 10 ML FLUSH IV FLUSH SCH ×2 (08:15→21:15)
[2017-10-21 12:00] VITALS: BP 113/58; PULSE 112; RESP 18; TEMP 98.5; O2SAT 97
[2017-10-21] MEDS: ENOXAPARIN SODIUM 30 MG/0.3 ML SYRINGE SQ SCH (12:44)
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
[2017-10-21 16:00] VITALS: BP 114/60; PULSE 101; RESP 18; TEMP 97.6; O2SAT 95
[2017-10-21 20:05] VITALS: BP 131/57; PULSE 108; RESP 17; TEMP 97.1; O2SAT 99
[2017-10-22] MEDS: ENOXAPARIN SODIUM 30 MG/0.3 ML SYRINGE SQ SCH ×2 (00:02→11:05)
[2017-10-22 00:20] VITALS: BP 145/74; PULSE 108; RESP 17; TEMP 98.7; O2SAT 99
[2017-10-22] MEDS: LORazepam 1 MG TAB PO PRN ×2 (01:15→14:34)
[2017-10-22] MEDS: HYDROmorphone HCL PF 1 MG/ML VIAL IV PUSH PRN ×3 (05:07→17:46)
[2017-10-22 08:00] VITALS: BP 131/72; PULSE 101; RESP 18; TEMP 98.5; O2SAT 97
[2017-10-22] MEDS: GABAPENTIN 300 MG CAP PO SCH ×3 (08:02→17:46)
[2017-10-22] MEDS: METHOCARBAMOL 500 MG TAB PO SCH ×3 (08:03→21:38)
[2017-10-22] MEDS: ACETAMINOPHEN/HYDROcodone 325 MG/10 MG TAB PO PRN ×4 (08:03→21:38)
[2017-10-22] MEDS: amLODIPine BESYLATE 5 MG TAB PO SCH (08:03)
[2017-10-22] MEDS: fentaNYL 50 MCG/HR PATCH T-DERMAL SCH (08:03)
[2017-10-22] MEDS: REMOVE OLD DURAGESIC (FENTANYL) PATCH T-DERMAL SCH (08:03)
[2017-10-22] MEDS: POLYETHYLENE GLYCOL 17 GM PKG PO SCH (08:09)
[2017-10-22] MEDS: SODIUM CHLORIDE 0.9% FLUSH 10 ML FLUSH IV FLUSH SCH ×2 (08:09→21:39)
[2017-10-22] MEDS: LACTULOSE SYRUP 20 GM/30 ML CUP PO SCH (08:09)
[2017-10-22] MEDS: MAGNESIUM HYDROXIDE SUSP 30 ML CUP PO SCH ×2 (08:09→21:00)
[2017-10-22] MEDS: BACITRACIN TOP OINT 15 GM TUBE TOP SCH ×2 (08:09→21:40)
[2017-10-22] MEDS: DOCUSATE SODIUM 50 MG/SENNA 8.6 MG TAB PO SCH ×2 (08:09→21:00)
[2017-10-22 12:00] VITALS: PULSE 102; RESP 18; TEMP 98.3; O2SAT 99
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
[2017-10-22 16:00] VITALS: BP 118/64; PULSE 99; RESP 18; TEMP 98.1; O2SAT 98
[2017-10-22 19:00] VITALS: BP 125/64; PULSE 105; RESP 17; TEMP 98; O2SAT 98
[2017-10-23] VITALS: BP 97/54; PULSE 108; RESP 15; TEMP 98.9; O2SAT 96
[2017-10-23] MEDS: HYDROmorphone HCL PF 1 MG/ML VIAL IV PUSH PRN ×3 (00:01→12:33)
[2017-10-23] MEDS: LORazepam 1 MG TAB PO PRN (02:51)
[2017-10-23] MEDS: ACETAMINOPHEN/HYDROcodone 325 MG/10 MG TAB PO PRN ×4 (02:58→14:53)
[2017-10-23] MEDS: METHOCARBAMOL 500 MG TAB PO SCH ×2 (06:15→12:34)
[2017-10-23 07:51] VITALS: BP 102/59; PULSE 72; RESP 18; TEMP 98.2; O2SAT 98
[2017-10-23] MEDS: BACITRACIN TOP OINT 15 GM TUBE TOP SCH (09:00)
[2017-10-23] MEDS: MAGNESIUM HYDROXIDE SUSP 30 ML CUP PO SCH (09:00)
[2017-10-23] MEDS: LACTULOSE SYRUP 20 GM/30 ML CUP PO SCH (09:00)
[2017-10-23] MEDS: POLYETHYLENE GLYCOL 17 GM PKG PO SCH (09:00)
[2017-10-23] MEDS: GABAPENTIN 300 MG CAP PO SCH ×2 (09:06→12:34)
[2017-10-23] MEDS: amLODIPine BESYLATE 5 MG TAB PO SCH (09:06)
[2017-10-23] MEDS: SODIUM CHLORIDE 0.9% FLUSH 10 ML FLUSH IV FLUSH SCH (09:07)
[2017-10-23] MEDS: DOCUSATE SODIUM 50 MG/SENNA 8.6 MG TAB PO SCH (09:07)
[2017-10-23 12:00] VITALS: BP 136/68; PULSE 105; RESP 18; TEMP 98.4; O2SAT 99
[2017-10-23] MEDS: ENOXAPARIN SODIUM 30 MG/0.3 ML SYRINGE SQ SCH ×2 (12:34)
[2017-10-23] MEDS ORDERED: HYDR-3583 PO (12:56)
[2017-10-23] MEDS ORDERED: METH500T3 PO (12:56)
--- NOTE | 2017-10-23 13:03 | HHI.FF ---
Face to Face Verification Diagnosis: (1) Left radial fracture (2) Closed left femoral fracture (3) Laceration of left cheek with complication Physical Therapy Order: Evaluate and Treat, Improve ambulation, Strength and gait training Home Health Nursing Order: Nursing assessment with vital signs I have seen patient Dre Guevara on 10/23/17. My clinical findings support the need for the requested home health care services because: Limited ability to care for self High risk of falls I certify that my clinical findings support that this patient is homebound because: Post-op weakness Unsteady gait/balance Bebeto Boyd Oct 23, 2017 13:03
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
[2017-10-23 14:53] VITALS: RESP 16
== END 2017-10-23 17:53 | disposition home health service (06) | DRG 481 ==
LOC: NEPI 10:12 → MERGE 10:48 → NEDA 10:48 → EDBD 10:48 → N06B 22:13
PROVIDERS: ADMIT Surgery Trauma Surgery; ATTEND Surgery Trauma Surgery
PROC: 0QS906Z Reposition Left Femoral Shaft with Intramedullary Internal Fixation Device, Open Approach (ICD-10-PCS; principal; 2017-10-13 15:00)
PROC: 0PSJ04Z Reposition Left Radius with Internal Fixation Device, Open Approach (ICD-10-PCS; 2017-10-13 15:00)
DX: S72.362A Displaced segmental fracture of shaft of left femur, initial encounter for closed fracture (principal); S52.302A Unspecified fracture of shaft of left radius, initial encounter for closed fracture; S81.812A Laceration without foreign body, left lower leg, initial encounter; I10 Essential (primary) hypertension; S01.512A Laceration without foreign body of oral cavity, initial encounter; S01.412A Laceration without foreign body of left cheek and temporomandibular area, initial encounter; S01.81XA Laceration without foreign body of other part of head, initial encounter; L40.9 Psoriasis, unspecified; F41.9 Anxiety disorder, unspecified; Z75.1 Person awaiting admission to adequate facility elsewhere; V47.5XXA Car driver injured in collision with fixed or stationary object in traffic accident, initial encounter; Y92.411 Interstate highway as the place of occurrence of the external cause; Z23 Encounter for immunization
CPT/HCPCS: 70450; 70486; 71010; 71260; 72125; 72170; 73090; 73551; 73552; 73590; 73600; 74177; 76000; 76937; 80048; 80053; 82435; 82565; 82947; 82948; 84132; 84295; 84520; 85014; 85018; 85025; 85610; 85730; 86850; 86900; 86901; 90471; 90686; 90715; 94150; 96365; 96375; 99291; C1713; G0390; J0131; J0330; J0360; J0690; J1100; J1170; J1580; J1650; J2060; J2175; J2250; J2270; J2370; J2405; J2710; J3010; J3370; J7120; Q2038; Q9967